=== PATIENT | female | born 1990 | race Caucasian/White ===

== ENCOUNTER 2017-12-05 16:35 | Emergency (ER) | payer OTHER ==
[~2017-12-05] VITALS: Ht 157.5 cm; Wt 86.3 kg
[~2017-12-05 16:35] MED LIST: LAMICTAL100 MG PO; TOPAMAX50 MG PO
[2017-12-05] MEDS ORDERED: NAPROSYN500 MG PO (17:45)
[2017-12-05 18:37] VITALS: BP 122/92
== END 2017-12-05 18:39 | disposition home or self-care (01) ==
LOC: EME 16:35
DX: S93.401A Sprain of unspecified ligament of right ankle, initial encounter (principal); W10.1XXA Fall (on)(from) sidewalk curb, initial encounter; Y99.0 Civilian activity done for income or pay; X50.1XXA Overexertion from prolonged static or awkward postures, initial encounter
CPT/HCPCS: 73610; 99281; 99284